=== PATIENT | male | born 2000 | race Caucasian/White ===

== ENCOUNTER 2018-12-14 21:51 | Emergency (ER) | payer BC ==
[2018-12-14 22:19] VITALS: BP 128/64
[2018-12-14] MEDS ORDERED: Ondansetron ODT TAB* 4 MG PO ONE ×2 (22:23→23:00)
--- NOTE | 2018-12-14 23:15 | UC ---
Nausea/Vomiting/Diarrhea HPI - HPI Summary HPI Summary: PATIENT IS AN [employer] STUDENT PRESENTING WITH 5 DAYS OF PERSISTENT NAUSEA AND VOMITING. STATES SOME WATERY DIARRHEA DEVELOPED TODAY. NO RECENT TRAVEL OR NEW FOODS. 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 HE ALSO BROKE UP WITH HIS BOYFRIEND 5 DAYS AGO RIGHT BEFORE THE ONSET OF HIS CURRENT SYMPTOMS. HE HAS HAS A KNOWN HISTORY OF DEPRESSION AND HAS STARTED COUNSELING THIS WEEK. NO FEVER OR FLU-LIKE SYMPTOMS. NO URINARY SX OR PENILE D/C. IS NOT CONCERNED ABOUT STD. - History of Current Complaint Chief Complaint: UCGI Stated Complaint: STOMACH ILLNESS Time Seen by Provider: 12/14/18 22:23 Hx Obtained From: Patient Onset/Duration: Sudden Onset, Lasting Days, Still Present Timing: Constant Severity Initially: Moderate Severity Currently: Moderate Pain Intensity: 1 Pain Scale Used: 0-10 Numeric Location: Diffuse Character: Not Applicable Aggravating Factor(s): Nothing Alleviating Factor(s): Nothing Nausea/Vomiting Presence: Nauseated, Vomiting Vomiting Frequency: Every 3-4 hours Vomiting Characteristics: Retching, Nonbilious Diarrhea Presence: Yes Diarrhea Frequency: Other Diarrhea Characteristics: Watery - Allergies/Home Medications Allergies/Adverse Reactions: Allergies Allergy/AdvReac Type Severity Reaction Status Date / Time No Known Allergies Allergy Verified 12/14/18 22:20 Home Medications: Home Medications lamoTRIgine TAB(*) [Lamictal TAB(*)] 25 mg PO QAM 12/14/18 [History Confirmed ] lamoTRIgine TAB(*) [Lamictal TAB(*)] 50 mg PO BEDTIME 12/14/18 [History Confirmed 12/14/18] PMH/Surg Hx/FS Hx/Imm Hx Psychological History: Depression - Surgical History Surgical History: Yes Surgery Procedure, Year, and Place: as an - Family History Known Family History: Positive: Non-Contributory - Social History Alcohol Use: Occasionally Substance Use Type: None Smoking Status (MU): Never Smoked Tobacco Review of Systems All Other Systems Reviewed And Are Negative: Yes Constitutional: Positive: Negative ENT: Positive: Negative Respiratory: Positive: Negative Cardiovascular: Positive: Negative Gastrointestinal: Positive: Vomiting, Diarrhea, Nausea Genitourinary: Positive: Negative Physical Exam Triage Information Reviewed: Yes Appearance: Well-Appearing, No Pain Distress, Well-Nourished Vital Signs: Initial Vital Signs Temp 99.8 F 12/14/18 22:14 Pulse 66 12/14/18 22:14 Resp 16 12/14/18 22:14 BP 128/64 12/14/18 22:14 Pulse Ox 98 12/14/18 22:14 Vital Signs Reviewed: Yes Eyes: Positive: Conjunctiva Clear ENT: Positive: Hearing grossly normal, Pharynx normal, TMs normal Neck: Positive: Supple, Nontender, No Lymphadenopathy Respiratory Exam: Normal Cardiovascular Exam: Normal Abdomen Description: Positive: Soft, Other: - MILD TENDERNESS DIFFUSELY. NO RIGIDITY OR REBOUND. Negative: CVA Tenderness (R), CVA Tenderness (L), Distended, Guarding Bowel Sounds: Positive: Present Musculoskeletal: Positive: No Edema Neurological: Positive: Alert Psychological: Positive: Age Appropriate Behavior Skin: Negative: Rashes Naus/Vom/Diarrhea Course/Dx - Course Course Of Treatment: PATIENT'S SYMPTOMS ARE LIKELY STRESS RELATED. ENCOURAGED HIM TO CONTINUE WITH HIS COUNSELING AND TO SURROUND HIMSELF WITH HIS FRIENDS AND FAMILY. ZOFRAN FOR NAUSEA NEEDED. CLEAR LIQUIDS, BLAND DIET. TO THE ER WITHOUT FAIL IF HIS SYMPTOMS PERSIST OR WORSEN. - Differential Dx/Diagnosis Provider Diagnosis: Nausea and vomiting Condition At Discharge: Stable Discharge - Sign-Out/Discharge Documenting (check all that apply): Patient Departure All imaging exams completed and their final reports reviewed: No Studies - Discharge Plan Condition: Stable Disposition: HOME Prescriptions: Ondansetron ODT TAB* [Zofran Odt TAB*] 4 mg PO Q6H PRN #20 tab.odt PRN Reason: Nausea/Vomiting Patient Education Materials: Acute Nausea and Vomiting (ED) Forms: *School Release Referrals: Katrina NETTLES,Judson Ayala [Primary Care Provider] - If Needed Additional Instructions: YOU MAY HAVE A VIRAL GASTROENTERITIS WHICH IS CAUSING YOUR SYMPTOMS. IT MAY ALSO BE RELATED TO YOUR RECENT INCREASE IN STRESS. CONTINUE YOUR COUNSELING SCHEDULED. SEEK COMFORT IN YOUR FRIENDS AND FAMILY. NO INDICATION FOR ANY ACUTE INTERVENTION TODAY. ZOFRAN NEEDED FOR NAUSEA. ENSURE ADEQUATE HYDRATION. CLEAR LIQUIDS, BLAND DIET. AVOID CAFFEINE, DAIRY, GREASY, SPICY FOODS. ONCE YOU ARE TOLERATING CLEAR LIQUIDS YOU CAN ADVANCE TO SIMPLE, BLAND FOOD. GO TO THE ER WITHOUT FAIL IF YOUR SYMPTOMS DO NOT IMPROVE OVER THE NEXT SEVERAL DAYS OR IF YOU DEVELOP WORSENING ABDOMINAL PAIN, FEVER, BLOOD IN THE VOMIT OR STOOL OR ANY OTHER CONCERNING SYMPTOMS. - Billing Disposition and Condition Condition: STABLE Disposition: Home
== END 2018-12-14 23:19 | disposition home or self-care (01) ==
LOC: UCEAST 21:51
DX: R11.2 Nausea with vomiting, unspecified (principal); R19.7 Diarrhea, unspecified; F32.9 Major depressive disorder, single episode, unspecified; Z79.899 Other long term (current) drug therapy
CPT/HCPCS: 99202; A9270-GY; G0463